=== PATIENT | female | born 1965 | race Caucasian/White ===

== ENCOUNTER 2016-07-19 16:21 | Outpatient (CLI) | payer MEDICAID | END 2016-07-19 16:22 | disposition home or self-care (01) | DX: M47.816 Spondylosis without myelopathy or radiculopathy, lumbar region (principal); M43.16 Spondylolisthesis, lumbar region; M79.662 Pain in left lower leg ==

== ENCOUNTER 2018-01-10 23:00 | Emergency (ER) | payer MEDICAID ==
--- NOTE | 2018-01-11 01:35 | ED Physician Documentation ---
History of Present Illness - Stated complaint Stated Complaint: BODY PAIN - Chief complaint Chief Complaint: General - History obtained from History obtained from: Patient, Family - History of Present Illness Timing: Yesterday Pain level now: 8 Improved by: rest Worsened by: movement - Additonal information Additional information: c/o generalized body pain, worse in extremities (BUE, BLE). she feels this may be related to recent strenuous activity, specifically packing in anticipation of moving out of her current residence. she feels that this pain is similar to pains associated with her fibromyalgia. 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 : None, Kidney stones HEENT: Macular degeneration Psych: Depression, Anxiety, Panic attacks, Post traumatic stress disorder, Claustrophobia Musculoskeletal: Fibromyalgia, Chronic back pain Derm: None - Past Surgical History Past Surgical History: Yes General: EGD /TARGET NETWORK ANALYST: section, Hysterectomy HEENT: Tonsil/Adenoidectomy - Present Medications Home Medications: Ambulatory Orders Medication Instructions Recorded Confirmed Levothyroxine [Synthroid] 100 mcg PO QDAC 03/09/13 07/01/16 Sertraline [Zoloft] 200 mg PO DAILY 03/09/13 07/01/16 Hydroxyzine HCl 50 mg PO QID 04/07/15 07/01/16 Albuterol Sulfate [Proventil Hfa 1 - 2 puffs IH Q4H PRN #1 07/18/15 07/01/16 Inhaler] hfa.aer.ad Methocarbamol 1,000 mg PO Q8HR 07/01/16 07/01/16 Ondansetron Odt [Zofran] 4 mg TL Q6H PRN #10 tablet 07/01/16 07/01/16 Promethazine [Phenergan] 25 - 50 mg PO Q6H PRN #15 tab 07/01/16 Zolpidem [Ambien] 10 mg PO DAILY PM 07/01/16 07/01/16 oxyCODONE/ACET 5/325 [Percocet 5 1 - 2 each PO Q6H PRN #14 tablet 01/11/18 mg/325 mg] - Allergies Allergies/Adverse Reactions: Allergies Allergy/AdvReac Type Severity Reaction Status Date / Time pregabalin [From Lyrica] Allergy Intermediate Respiratory Verified 07/01/16 17: 23 amitriptyline Allergy Unknown Verified 07/01/16 17:23 butalbital [From Fioricet] Allergy Unknown Verified 07/01/16 17:23 caffeine [From Fioricet] Allergy Unknown Verified 07/01/16 17:23 droperidol [From Inapsine] Allergy Anxiety Verified 07/01/16 17:23 gabapentin Allergy Unknown Verified 07/01/16 17:23 metoclopramide HCl * Allergy Anxiety Verified 07/01/16 17:23 [From Reglan] prochlorperazine edisylate * Allergy Anxiety Verified 07/01/16 17:23 [From Compazine] prochlorperazine maleate * Allergy Anxiety Verified 07/01/16 17:23 [From Compazine] sulfamethoxazole Allergy Hives Verified 07/01/16 17:23 [From Bactrim] sumatriptan [From Imitrex] Allergy Unknown Verified 07/01/16 17:23 sumatriptan succinate * Allergy Unknown Verified 07/01/16 17:23 [From Imitrex] topiramate [From Topamax] Allergy Hives Verified 07/01/16 17:23 tramadol HCl * [From Ultram] Allergy Hives Verified 07/01/16 17:23 trimethoprim [From Bactrim] Allergy Hives Verified 07/01/16 17:23 rizatriptan benzoate * AdvReac Intermediate vomiting Verified 07/01/16 17:23 [From Maxalt] nerve pain med Allergy Hives Uncoded 07/01/16 02:40 - Social History Does the pt smoke?: Yes Smoking Status: Current every day smoker Does the pt drink ETOH?: No Does the pt have substance abuse?: Yes - Immunizations Immunizations are current?: Yes - POLST Patient has POLST: No Results - Vitals Vitals: Vital Signs - 24 hr 01/11/18 02:21 Heart Rate 78 Respiratory 16 Rate Blood Pressure 134/93 H O2 Saturation 98 Oxygen O2 Source Room air PD MEDICAL DECISION MAKING - ED course Complexity details: reviewed old records, considered differential, d/w patient, d/w family ED course: HPI, ROS, and physical exam do not suggest an emergent process necessitating or indicating emergent testing. given percocet and rx for same. she apparently told triaging RN that she would need narcotic medication for this pain and that long distance precludes f/u with her PMD. however, she tells me she has f/u with PMD next week. she lists an extensive number of medication allergies. I offered percocet and she expressed satisfaction with this medication; she did not bargain or argue (or inquire) regarding amount prescribed nor request other medications except for toradol. she says she cannot take NSAIDs due to h/o PUD, although when I explain that toradol is an NSAID, she still asks for a dose, as she has had favorable results with this in the past. based on the description of the severity of her PUD, I explained that I would prefer she use the percocet and avoid toradol at this time, and she seemed satisfied with this. - Sepsis Event Vital Signs: Vital Signs - 24 hr 01/11/18 02:21 Heart Rate 78 Respiratory 16 Rate Blood Pressure 134/93 H O2 Saturation 98 Oxygen O2 Source Room air Departure - Departure Disposition: 01 Home, Self Care Clinical Impression: Generalized aches and pains Condition: Good Instructions: ED Acute Pain [facility] Prescriptions: oxyCODONE/ACET 5/325 [Percocet 5 mg/325 mg] 1 - 2 each PO Q6H PRN #14 tablet PRN Reason: Pain Discharge Date/Time: 01/11/18 02:24
[2018-01-11] MEDS ORDERED: oxyCOD/ACETAMIN 5 MG/325 MG TABLET PO STA (02:15)
[2018-01-11 02:24] VITALS: BP 134/93
== END 2018-01-11 02:24 | disposition home or self-care (01) ==
LOC: ED 23:00
DX: M79.1 Myalgia (principal); E03.9 Hypothyroidism, unspecified; F17.200 Nicotine dependence, unspecified, uncomplicated
CPT/HCPCS: 99281; 99283; A9270

== ENCOUNTER 2018-04-15 18:21 | Emergency (ER) | payer MEDICAID ==
--- NOTE | 2018-04-15 19:21 | ED Physician Documentation ---
PD HPI BACK PAIN - Stated complaint Stated Complaint: BACK/BILAT LEG P/ LT FT PX/ JORGE - Chief complaint Chief Complaint: General - History obtained from History obtained from: Patient - History of Present Illness Timing - onset: How many months ago (has had chronic back pain and migraines. Has planned surgery for fusion of lumbar back for the pain and radiculitis about a month from now. Seeing Pain Clinic initial visit on . Has had increased pain over baseline the past 2 weeks. No new injury. Also with migraine the past few days, feeling similar to prior onces.) Timing - duration: Weeks Timing - details: Gradual onset, Still present, Waxing and waning Location: Lower, Right, Left Quality: Pain, Spasm Associated symptoms: Numbness (left lateral lower leg, chronic). No: Fever, Weakness, Incontinent of urine Worsened by: Movement Similar symptoms before: Diagnosis (lumbar disc disease with radiculitis. Also migraines.) Recently seen: Not recently seen (last ER visit was December 2017, and then prior to that was 2017, per [facility] record.) Review of Systems Constitutional: denies: Fever, Chills, Myalgias Nose: denies: Rhinorrhea / runny nose, Congestion Throat: denies: Sore throat Respiratory: denies: Cough GI: reports: Nausea, Diarrhea. denies: Abdominal Swelling, Vomiting Skin: denies: Rash, Lesions Musculoskeletal: reports: Back pain. denies: Neck pain Neurologic: reports: Numbness (chronic left lateral lower leg), Head injury. 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 : None, Kidney stones HEENT: Macular degeneration Psych: Depression, Anxiety, Panic attacks, Post traumatic stress disorder, Claustrophobia Musculoskeletal: Fibromyalgia, Chronic back pain Derm: None - Past Surgical History Past Surgical History: Yes General: EGD /PROMOTIONAL REPRESENTATIVE: section, Hysterectomy HEENT: Tonsil/Adenoidectomy - Present Medications Home Medications: Ambulatory Orders Medication Instructions Recorded Confirmed Levothyroxine [Synthroid] 100 mcg PO QDAC 03/09/13 07/01/16 Sertraline [Zoloft] 200 mg PO DAILY 03/09/13 07/01/16 Ondansetron Odt [Zofran] 4 mg TL Q6H PRN #10 tablet 07/01/16 07/01/16 Zolpidem [Ambien] 10 mg PO DAILY PM 07/01/16 07/01/16 Cyclobenzaprine [Flexeril] 10 mg PO TID PRN 04/15/18 04/15/18 Ondansetron HCl [Zofran] 4 mg PO Q6H PRN #20 tablet 04/15/18 Oxycodone HCl/Acetaminophen 1 each PO Q6H PRN #20 tablet 04/15/18 [Percocet 5-325 mg Tablet] - Allergies Allergies/Adverse Reactions: Allergies Allergy/AdvReac Type Severity Reaction Status Date / Time pregabalin [From Lyrica] Allergy Intermediate Respiratory Verified 04/15/18 18:29 amitriptyline Allergy Unknown Verified 04/15/18 18:29 butalbital [From Fioricet] Allergy Unknown Verified 04/15/18 18:29 caffeine [From Fioricet] Allergy Unknown Verified 04/15/18 18:29 droperidol [From Inapsine] Allergy Anxiety Verified 04/15/18 18:29 gabapentin Allergy Unknown Verified 04/15/18 18:29 metoclopramide HCl * Allergy Anxiety Verified 04/15/18 18:29 [From Reglan] prochlorperazine edisylate * Allergy Anxiety Verified 04/15/18 18:29 [From Compazine] prochlorperazine maleate * Allergy Anxiety Verified 04/15/18 18:29 [From Compazine] sulfamethoxazole Allergy Hives Verified 04/15/18 18:29 [From Bactrim] sumatriptan [From Imitrex] Allergy Unknown Verified 04/15/18 18:29 sumatriptan succinate * Allergy Unknown Verified 04/15/18 18:29 [From Imitrex] topiramate [From Topamax] Allergy Hives Verified 04/15/18 18:29 tramadol HCl * [From Ultram] Allergy Hives Verified 04/15/18 18:29 trimethoprim [From Bactrim] Allergy Hives Verified 04/15/18 18:29 rizatriptan benzoate * AdvReac Intermediate vomiting Verified 04/15/18 18:29 [From Maxalt] nerve pain med Allergy Hives Uncoded 04/15/18 18:29 - Social History Does the pt smoke?: Yes Smoking Status: Current every day smoker Does the pt drink ETOH?: No Does the pt have substance abuse?: Yes - Immunizations Immunizations are current?: Yes - POLST Patient has POLST: No PD ED PE NORMAL - Vitals Vital signs reviewed: Yes - General General: Alert and oriented X 3, No acute distress, Well developed/nourished - HEENT HEENT: PERRL (light sensitive), Ears normal, Pharynx benign - Neck Neck: Supple, no meningeal sign, No adenopathy - Cardiac Cardiac: RRR, No murmur - Respiratory Respiratory: Clear bilaterally - Abdomen Abdomen: Soft, Non tender - Back Back: No CVA TTP - Derm Derm: Normal color, Warm and dry - Extremities Extremities: No tenderness to palpate, Normal ROM s pain, No edema, No calf tenderness / cord - Neuro Neuro: Alert and oriented X 3, No motor deficit, Normal speech Eye Opening: Spontaneous Motor: Obeys Commands Verbal: Oriented GCS Score: 15 Results - Vitals Vitals: Vital Signs - 24 hr 04/15/18 18:24 Temperature 36.3 C L Heart Rate 114 H Respiratory 18 Rate Blood Pressure 140/96 H O2 Saturation 98 Oxygen O2 Source Room air PD MEDICAL DECISION MAKING - ED course Complexity details: reviewed old records (had an ER visit December 2017, and then prior to that was 2016. So currently very infrequent visits. I talked with her about that and I felt that reasonable to treat infrequently for exac pains, but we would watch for increased frequency. She is seeing new pain clinic later this month and having back surgery about a month from now. ), re-evaluated patient (improved with IM meds for migraine and pain. ), considered differential, d/w patient Departure - Departure Disposition: 01 Home, Self Care Clinical Impression: Migraine headache Qualifiers: Migraine type: without aura Status migrainosus presence: with status migrainosus Intractability: not intractable Qualified Code(s): G43.001 - Migraine without aura, not intractable, with status migrainosus Low back pain Qualifiers: Chronicity: chronic Back pain laterality: unspecified Sciatica presence: with sciatica Sciatica laterality: sciatica of left side Qualified Code(s): M54.42 - Lumbago with sciatica, left side Condition: Stable Record reviewed to determine appropriate education?: Yes Follow-Up: Erika Parker PA-C [Primary Care Provider] - Prescriptions: Ondansetron HCl [Zofran] 4 mg PO Q6H PRN #20 tablet PRN Reason: Nausea / Vomiting Oxycodone HCl/Acetaminophen [Percocet 5-325 mg Tablet] 1 each PO Q6H PRN #20 tablet PRN Reason: Pain Comments: See the pain clinic on the as planned. Continue usual medications. Zofran if needed for nausea. Percocet if needed for pain. Discharge Date/Time: 04/15/18 21:44
[2018-04-15] MEDS ORDERED: KETOROLAC 15 MG/ML VIAL IM STA (19:56)
[2018-04-15] MEDS ORDERED: HYDROmorphone 1 MG/ML CARPUJECT IM STA (19:56)
[2018-04-15] MEDS ORDERED: ONDANSETRON ODT 4 MG TABLET TL STA (19:57)
[2018-04-15] MEDS ORDERED: oxyCODONE/ACET 5/325 Prepack 4 PO STA (21:18)
[2018-04-15 21:30] VITALS: BP 128/91
== END 2018-04-15 21:44 | disposition home or self-care (01) ==
LOC: ED 18:21
DX: G43.001 Migraine without aura, not intractable, with status migrainosus (principal); M54.42 Lumbago with sciatica, left side; F17.200 Nicotine dependence, unspecified, uncomplicated
CPT/HCPCS: 96372; 99283; J1170; Q0162

== ENCOUNTER 2018-06-10 08:10 | Emergency (ER) | payer MEDICAID ==
[2018-06-10 08:20] VITALS: BP 160/91
[2018-06-10] MEDS ORDERED: SODIUM CHLORIDE 0.9% 1,000 ML IV ONE (08:38)
[2018-06-10] MEDS ORDERED: DEXAMETHASONE 10 MG/ML VIAL IVP STA (08:38)
[2018-06-10] MEDS ORDERED: ONDANSETRON 4 MG/2 ML VIAL IVP STA (08:38)
[2018-06-10] MEDS ORDERED: HYDROmorphone 1 MG/ML CARPUJECT IVP STA ×2 (08:38→09:25)
--- NOTE | 2018-06-10 08:45 | ED Physician Documentation ---
PD HPI HEADACHE - Stated complaint Stated Complaint: BACK PX/JORGE - Chief complaint Chief Complaint: Back Pain - History obtained from History obtained from: Patient - History of Present Illness Timing - onset: How many days ago (4) Timing - onset during: Rest Timing - duration: Days Timing - details: Gradual onset, Still present Location: Global Quality: Throbbing Associated symptoms: Stiff neck, Nausea. No: Fever, Vomiting, Weakness, Numbness, Syncope, Seizure, Eye pain, Vision changes Improved by: Rest, Dark room, Quiet, Meds Worsened by: Light, Noise, Moving Contributing factors: No: Anticoagulated Similar symptoms before: Diagnosis (migraine and tension headache) Recently seen: Emergency Dept - Additional information Additional information: 52-year-old female with a long history of migraine headache and chronic back pain is off of pain management now and she is developed a headache over the past 4 days that is consistent with what she has had previously with her migraines. She has had tension headaches as well and she has not usually responded to treatment with Compazine and Benadryl. She usually requires narcotic rescue. She is getting ready to have a back surgery on her lumbar area and for pain management right now she is using Tylenol 3 occasionally. She is planning on having a fusion done on the of this month. Review of Systems Constitutional: reports: Fatigue. denies: Fever, Chills Eyes: reports: Photophobia. denies: Decreased vision Ears: denies: Ear pain Nose: reports: Sinus pressure / pain. denies: Rhinorrhea / runny nose, Congestion Throat: denies: Sore throat Cardiac: denies: Chest pain / pressure, Palpitations Respiratory: denies: Dyspnea, Cough GI: reports: Nausea. 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 : None, Kidney stones HEENT: Macular degeneration Psych: Depression, Anxiety, Panic attacks, Post traumatic stress disorder, Claustrophobia Musculoskeletal: Fibromyalgia, Chronic back pain Derm: None - Past Surgical History Past Surgical History: Yes General: EGD /SKIP TRACER: section, Hysterectomy HEENT: Tonsil/Adenoidectomy - Present Medications Home Medications: Ambulatory Orders Medication Instructions Recorded Confirmed Levothyroxine [Synthroid] 100 mcg PO QDAC 03/09/13 07/01/16 Sertraline [Zoloft] 200 mg PO DAILY 03/09/13 07/01/16 Ondansetron Odt [Zofran] 4 mg TL Q6H PRN #10 tablet 07/01/16 07/01/16 Zolpidem [Ambien] 10 mg PO DAILY PM 07/01/16 07/01/16 Cyclobenzaprine [Flexeril] 10 mg PO TID PRN 04/15/18 04/15/18 Ondansetron HCl [Zofran] 4 mg PO Q6H PRN #20 tablet 04/15/18 Oxycodone HCl/Acetaminophen 1 each PO Q6H PRN #20 tablet 04/15/18 [Percocet 5-325 mg Tablet] Oxycodone HCl/Acetaminophen 1 - 2 each PO Q6H PRN #14 tablet 06/10/18 [Percocet 5-325 mg Tablet] - Allergies Allergies/Adverse Reactions: Allergies Allergy/AdvReac Type Severity Reaction Status Date / Time pregabalin [From Lyrica] Allergy Intermediate Respiratory Verified 06/10/18 08:20 amitriptyline Allergy Unknown Verified 06/10/18 08:20 butalbital [From Fioricet] Allergy Unknown Verified 06/10/18 08:20 caffeine [From Fioricet] Allergy Unknown Verified 06/10/18 08:20 droperidol [From Inapsine] Allergy Anxiety Verified 06/10/18 08:20 gabapentin Allergy Unknown Verified 06/10/18 08:20 metoclopramide HCl * Allergy Anxiety Verified 06/10/18 08:20 [From Reglan] prochlorperazine edisylate * Allergy Anxiety Verified 06/10/18 08:20 [From Compazine] prochlorperazine maleate * Allergy Anxiety Verified 06/10/18 08:20 [From Compazine] sulfamethoxazole Allergy Hives Verified 06/10/18 08:20 [From Bactrim] sumatriptan [From Imitrex] Allergy Unknown Verified 06/10/18 08:20 sumatriptan succinate * Allergy Unknown Verified 06/10/18 08:20 [From Imitrex] topiramate [From Topamax] Allergy Hives Verified 06/10/18 08:20 tramadol HCl * [From Ultram] Allergy Hives Verified 06/10/18 08:20 trimethoprim [From Bactrim] Allergy Hives Verified 06/10/18 08:20 rizatriptan benzoate * AdvReac Intermediate vomiting Verified 06/10/18 08:20 [From Maxalt] nerve pain med Allergy Hives Uncoded 06/10/18 08:20 - Social History Does the pt smoke?: Yes Smoking Status: Current every day smoker Does the pt drink ETOH?: No Does the pt have substance abuse?: Yes - Immunizations Immunizations are current?: Yes - POLST Patient has POLST: No PD ED PE NORMAL - Vitals Vital signs reviewed: Yes (tachy and hypertensive ) - General General: Alert and oriented X 3, Well developed/nourished, Other (skip tracer tone flat affect and photophobia are present as facial experssions of pain) - HEENT HEENT: Atraumatic, PERRL, EOMI, Ears normal, Pharynx benign, Other (dry mucous membranes ) - Neck Neck: Supple, no meningeal sign, No bony TTP - Cardiac Cardiac: RRR, No murmur - Respiratory Respiratory: No respiratory distress, Clear bilaterally - Abdomen Abdomen: Soft, Non tender - Back Back: No CVA TTP, No spinal TTP - Derm Derm: Normal color, Warm and dry, No rash - Extremities Extremities: No deformity, No edema - Neuro Neuro: Alert and oriented X 3, chief technologist 2-12 intact, No motor deficit, No sensory deficit, Normal speech Eye Opening: Spontaneous Motor: Obeys Commands Verbal: Oriented GCS Score: 15 - Psych Psych: Normal mood Results - Vitals Vitals: Vital Signs - 24 hr 06/10/18 08:17 Temperature 36.0 C L Heart Rate 107 H Respiratory 16 Rate Blood Pressure 160/91 H O2 Saturation 99 Oxygen O2 Source Room air PD MEDICAL DECISION MAKING - ED course Complexity details: reviewed old records, reviewed results, re-evaluated patient, considered differential, d/w patient ED course: 52 y/o female with a history of migraine and tension headache has persistent headache and requires narcotic rescue. She is given saline and decadron as well and a second dose of dilaudid. Departure - Departure Disposition: 01 Home, Self Care Clinical Impression: Tension headache Condition: Stable Instructions: ED Headache Tension Follow-Up: Erika Parker PA-C [Primary Care Provider] - Prescriptions: Oxycodone HCl/Acetaminophen [Percocet 5-325 mg Tablet] 1 - 2 each PO Q6H PRN #14 tablet PRN Reason: pain Discharge Date/Time: 06/10/18 09:54
== END 2018-06-10 09:54 | disposition home or self-care (01) ==
LOC: ED 08:10
DX: G44.209 Tension-type headache, unspecified, not intractable (principal); E03.9 Hypothyroidism, unspecified; F17.200 Nicotine dependence, unspecified, uncomplicated
CPT/HCPCS: 96374; 96376; 99283; J1170

== ENCOUNTER 2018-07-15 14:35 | Emergency (ER) | payer MEDICAID ==
[2018-07-15] MEDS ORDERED: KETOROLAC 60 MG/2 ML VIAL IM STA (14:55)
[2018-07-15] MEDS ORDERED: HYDROmorphone 1 MG/ML CARPUJECT IM STA (14:55)
--- NOTE | 2018-07-15 14:58 | ED Physician Documentation ---
History of Present Illness - Stated complaint Stated Complaint: JORGE/BODY PX - Chief complaint Chief Complaint: General - History obtained from History obtained from: Patient - History of Present Illness Timing: Other (This is a 52-year-old woman with history of fibromyalgia and low back pain who was scheduled for late last month but was put off that she has been worked up for von Willebrand's disease. She presents with all over body pain and headache that started over the last few days and she is out of the pain medications that her surgeon prescribed her. She is a long history of concern for narcotic abuse from the emergency department and frequent emergency department use but over the last few years has used the emergency department much less than she had prior to that.) Review of Systems Constitutional: denies: Fever Ears: reports: Ear pain (right). denies: Loss of hearing Nose: reports: Rhinorrhea / runny nose. 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: None : None, Kidney stones HEENT: Macular degeneration Psych: Depression, Anxiety, Panic attacks, Post traumatic stress disorder, Claustrophobia Musculoskeletal: Fibromyalgia, Chronic back pain Derm: None - Past Surgical History Past Surgical History: Yes General: EGD /BRICK PICKER: section, Hysterectomy HEENT: Tonsil/Adenoidectomy - Present Medications Home Medications: Ambulatory Orders Medication Instructions Recorded Confirmed Levothyroxine [Synthroid] 100 mcg PO QDAC 03/09/13 07/01/16 Sertraline [Zoloft] 200 mg PO DAILY 03/09/13 07/01/16 Ondansetron Odt [Zofran] 4 mg TL Q6H PRN #10 tablet 07/01/16 07/01/16 Zolpidem [Ambien] 10 mg PO DAILY PM 07/01/16 07/01/16 Cyclobenzaprine [Flexeril] 10 mg PO TID PRN 04/15/18 04/15/18 Ondansetron HCl [Zofran] 4 mg PO Q6H PRN #20 tablet 04/15/18 Oxycodone HCl/Acetaminophen 1 each PO Q6H PRN #20 tablet 04/15/18 [Percocet 5-325 mg Tablet] Oxycodone HCl/Acetaminophen 1 - 2 each PO Q6H PRN #14 tablet 06/10/18 [Percocet 5-325 mg Tablet] Neomycin/Polymyx/Hc Otic Drops 4 drops OT TID #1 bottle 07/15/18 [Cortisporin Ear Susp] Oxycodone HCl/Acetaminophen 1 - 2 each PO Q6H PRN #10 tablet 07/15/18 [Percocet 5-325 mg Tablet] RX: Albuterol Sulf [Ventolin Hfa 1 - 2 puffs INH Q4HR PRN #1 inhaler 07/15/18 Inhaler] - Allergies Allergies/Adverse Reactions: Allergies Allergy/AdvReac Type Severity Reaction Status Date / Time pregabalin [From Lyrica] Allergy Intermediate Respiratory Verified 07/15/18 14:42 amitriptyline Allergy Unknown Verified 07/15/18 14:42 butalbital [From Fioricet] Allergy Unknown Verified 07/15/18 14:42 caffeine [From Fioricet] Allergy Unknown Verified 07/15/18 14:42 droperidol [From Inapsine] Allergy Anxiety Verified 07/15/18 14:42 gabapentin Allergy Unknown Verified 07/15/18 14:42 metoclopramide HCl * Allergy Anxiety Verified 07/15/18 14:42 [From Reglan] prochlorperazine edisylate * Allergy Anxiety Verified 07/15/18 14:42 [From Compazine] prochlorperazine maleate * Allergy Anxiety Verified 07/15/18 14:42 [From Compazine] sulfamethoxazole Allergy Hives Verified 07/15/18 14:42 [From Bactrim] sumatriptan [From Imitrex] Allergy Unknown Verified 07/15/18 14:42 sumatriptan succinate * Allergy Unknown Verified 07/15/18 14:42 [From Imitrex] topiramate [From Topamax] Allergy Hives Verified 07/15/18 14:42 tramadol HCl * [From Ultram] Allergy Hives Verified 07/15/18 14:42 trimethoprim [From Bactrim] Allergy Hives Verified 07/15/18 14:42 rizatriptan benzoate * AdvReac Intermediate vomiting Verified 07/15/18 14:42 [From Maxalt] aspirin AdvReac Unknown Verified 07/15/18 14:42 NSAIDS (Non-Steroidal AdvReac Unknown Verified 07/15/18 14:42 Anti-Inflamma nerve pain med Allergy Hives Uncoded 07/15/18 14:42 - Social History Does the pt smoke?: Yes Smoking Status: Current every day smoker Does the pt drink ETOH?: No Does the pt have substance abuse?: Yes - Immunizations Immunizations are current?: Yes - POLST Patient has POLST: No PD ED PE NORMAL - Vitals Vital signs reviewed: Yes - General General: Alert and oriented X 3, No acute distress - HEENT HEENT: PERRL, EOMI, Other (Right external otitis, TMs normal) - Neck Neck: Supple, no meningeal sign, No bony TTP - Cardiac Cardiac: RRR, No murmur - Respiratory Respiratory: No respiratory distress, Clear bilaterally - Abdomen Abdomen: Normal bowel sounds, Soft, Non tender - Back Back: No CVA TTP, No spinal TTP - Derm Derm: Normal color, Warm and dry - Extremities Extremities: No edema, No calf tenderness / cord, Other (She has diffuse tenderness consistent with a fibromyalgia flare especially in spots in the upper back and anterior thighs.) - Neuro Neuro: Alert and oriented X 3, Normal speech Results - Vitals Vitals: Vital Signs - 24 hr 07/15/18 07/15/18 14:38 15:20 Temperature 36.7 C Heart Rate 95 90 Respiratory 18 18 Rate Blood Pressure 138/90 H 130/88 H O2 Saturation 100 100 Oxygen O2 Source Room air PD MEDICAL DECISION MAKING - ED course ED course: 52-year-old woman with chronic pain who presents with body wide pain but basically an unremarkable examination and vitals. There is no evidence of an acute medical emergency. In the past we had some concerns about drug-seeking behavior with her. 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 Departure - Departure Disposition: 01 Home, Self Care Clinical Impression: External otitis, Chronic back pain, Myalgia Condition: Good Record reviewed to determine appropriate education?: Yes Instructions: ED Chronic Pain Management, ED Acute Pain [facility] Prescriptions: RX: Albuterol Sulf [Ventolin Hfa Inhaler] 1 - 2 puffs INH Q4HR PRN #1 inhaler PRN Reason: Shortness Of Air/Wheezing Neomycin/Polymyx/Hc Otic Drops [Cortisporin Ear Susp] 4 drops OT TID #1 bottle Oxycodone HCl/Acetaminophen [Percocet 5-325 mg Tablet] 1 - 2 each PO Q6H PRN #10 tablet PRN Reason: pain Comments: The policy of this emergency department is to not give more than 3 prescriptions for narcotics or other controlled substances in any 1 year. You have already surpassed this benchmark and we cannot prescribe narcotics for you. I encourage you to follow up with your primary care physician or to establish care with a primary care physician for ongoing pain management. You are always welcome to seek emergency care here for this or new issues but there will likely be limitations in the prescription of narcotic pain medication. Your blood pressure was elevated today on check into the emergency department. This does not mean that you have hypertension, it is a common phenomenon to come to the emergency department and have elevated blood pressure. I recommend that you see your primary care physician within the week to have it rechecked when you are feeling better. Discharge Date/Time: 07/15/18 15:20
[2018-07-15 15:22] VITALS: BP 130/88
== END 2018-07-15 15:20 | disposition home or self-care (01) ==
LOC: ED 14:35
DX: H60.91 Unspecified otitis externa, right ear (principal); M54.6 Pain in thoracic spine; G89.29 Other chronic pain; M79.7 Fibromyalgia; R03.0 Elevated blood-pressure reading, without diagnosis of hypertension; F17.200 Nicotine dependence, unspecified, uncomplicated
CPT/HCPCS: 96372; 99283; J1170

== ENCOUNTER 2018-08-19 20:42 | Emergency (ER) | payer MEDICAID ==
[2018-08-19 22:00] LABS: BASOPHILS % (AUTO) 0.2 %; EOSINOPHILS # (AUTO) 0.2 10^3/uL (0.0-0.7); EOSINOPHILS % (AUTO) 1.3 %; HGB - HEMOGLOBIN 8.1 g/dL (12.0-16.0); LYMPHOCYTES # (AUTO) 2.7 10^3/uL (1.5-3.5); LYMPHOCYTES % (AUTO) 19.7 %; MEAN CORPUSCULAR HEMOGLOBIN 26.9 pg (27.0-31.0); MEAN CORPUSCULAR HGB CONC 33.2 g/dL (32.0-36.0); MEAN CORPUSCULAR VOLUME 81.2 fL (81.0-99.0); MEAN PLATELET VOLUME 7.1 fL (7.9-10.8); MONOCYTES % (AUTO) 7.3 %; NEUTROPHILS # (AUTO) 9.7 10^3/uL (1.5-6.6); NEUTROPHILS % (AUTO) 71.5 %; PLT - PLATELET COUNT 404 10^3/uL (130-450); RED BLOOD COUNT 3.01 10^6/uL (4.20-5.40); RED CELL DISTRIBUTION WIDTH 15.5 % (12.0-15.0); WHITE BLOOD COUNT 13.5 x10^3/uL (4.8-10.8)
[2018-08-19 22:12] LABS: ALBUMIN 2.9 g/dL (3.2-5.5); ALBUMIN/GLOBULIN RATIO 0.7 (1.0-2.2); BILIRUBIN,TOTAL 0.4 mg/dL (0.2-1.0); CALCIUM 8.5 mg/dL (8.5-10.3); CREATININE 0.7 mg/dL (0.4-1.0); TOTAL PROTEIN 6.9 g/dL (6.7-8.2)
--- NOTE | 2018-08-19 22:23 | ED Physician Documentation ---
History of Present Illness - Stated complaint Stated Complaint: BILAT LEG SWELLING/POST OP 6 - Chief complaint Chief Complaint: Trauma Ext - Additonal information Additional information: 52-year-old female presents the emergency department with bilateral leg swelling over the past several days. The patient is status post lumbar fusion for degenerative disc disease. The patient denies any swelling or redness of the wound or drainage from the wound site. The patient denies fevers or chills. The patient denies any new motor weakness, saddle anesthesia or urinary retention. The patient denies chest pain or shortness of breath. The patient states that she has been ambulatory but has noticed increasing leg swelling, But no skin changes or skin Redness. Symptoms are described as mild. Review of Systems Constitutional: denies: Fever, Fatigue Eyes: denies: Discharge Ears: denies: Ear pain Nose: denies: Congestion Throat: denies: Sore throat Cardiac: reports: Pedal edema. 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 : None, Kidney stones HEENT: Macular degeneration Psych: Depression, Anxiety, Panic attacks, Post traumatic stress disorder, Claustrophobia Musculoskeletal: Fibromyalgia, Chronic back pain Derm: None - Past Surgical History Past Surgical History: Yes General: EGD Ortho: Other /TAKE UP SUPERVISOR: section, Hysterectomy HEENT: Tonsil/Adenoidectomy - Present Medications Home Medications: Ambulatory Orders Medication Instructions Recorded Confirmed Levothyroxine [Synthroid] 100 mcg PO QDAC 03/09/13 07/01/16 Sertraline [Zoloft] 200 mg PO DAILY 03/09/13 07/01/16 Ondansetron Odt [Zofran] 4 mg TL Q6H PRN #10 tablet 07/01/16 07/01/16 Zolpidem [Ambien] 10 mg PO DAILY PM 07/01/16 07/01/16 Cyclobenzaprine [Flexeril] 10 mg PO TID PRN 04/15/18 04/15/18 Ondansetron HCl [Zofran] 4 mg PO Q6H PRN #20 tablet 04/15/18 Oxycodone HCl/Acetaminophen 1 each PO Q6H PRN #20 tablet 04/15/18 [Percocet 5-325 mg Tablet] Oxycodone HCl/Acetaminophen 1 - 2 each PO Q6H PRN #14 tablet 06/10/18 [Percocet 5-325 mg Tablet] Albuterol Sulf [Ventolin Hfa 1 - 2 puffs INH Q4HR PRN #1 inhaler 07/15/18 Inhaler] Neomycin/Polymyx/Hc Otic Drops 4 drops OT TID #1 bottle 07/15/18 [Cortisporin Ear Susp] Oxycodone HCl/Acetaminophen 1 - 2 each PO Q6H PRN #10 tablet 07/15/18 [Percocet 5-325 mg Tablet] Furosemide [Lasix] 20 mg PO DAILY #4 tablet 08/19/18 - Allergies Allergies/Adverse Reactions: Allergies Allergy/AdvReac Type Severity Reaction Status Date / Time pregabalin [From Lyrica] Allergy Intermediate Respiratory Verified 08/19/18 20:50 amitriptyline Allergy Unknown Verified 08/19/18 20:50 droperidol [From Inapsine] Allergy Anxiety Verified 08/19/18 20:50 gabapentin Allergy Unknown Verified 08/19/18 20:50 metoclopramide HCl * Allergy Anxiety Verified 08/19/18 20:50 [From Reglan] prochlorperazine edisylate * Allergy Anxiety Verified 08/19/18 20:50 [From Compazine] prochlorperazine maleate * Allergy Anxiety Verified 08/19/18 20:50 [From Compazine] sulfamethoxazole Allergy Hives Verified 08/19/18 20:50 [From Bactrim] sumatriptan [From Imitrex] Allergy Unknown Verified 08/19/18 20:50 sumatriptan succinate * Allergy Unknown Verified 08/19/18 20:50 [From Imitrex] topiramate [From Topamax] Allergy Hives Verified 08/19/18 20:50 tramadol HCl * [From Ultram] Allergy Hives Verified 08/19/18 20:50 trimethoprim [From Bactrim] Allergy Hives Verified 08/19/18 20:50 rizatriptan benzoate * AdvReac Intermediate vomiting Verified 08/19/18 20:50 [From Maxalt] aspirin AdvReac Unknown Verified 08/19/18 20:50 butalbital [From Fioricet] AdvReac Unknown Verified 08/19/18 20:50 caffeine [From Fioricet] AdvReac Unknown Verified 08/19/18 20:50 NSAIDS (Non-Steroidal AdvReac Unknown Verified 08/19/18 20:50 Anti-Inflamma nerve pain med Allergy Hives Uncoded 08/19/18 20:50 - Social History Does the pt smoke?: Yes Smoking Status: Current every day smoker Does the pt drink ETOH?: No Does the pt have substance abuse?: Yes - Immunizations Immunizations are current?: Yes - POLST Patient has POLST: No PD ED PE NORMAL - General General: Alert and oriented X 3, No acute distress - HEENT HEENT: Atraumatic, PERRL, EOMI, Ears normal - Neck Neck: Supple, no meningeal sign - Cardiac Cardiac: RRR (Tachycardia with regular Rhythm), Strong equal pulses - Respiratory Respiratory: No respiratory distress, Clear bilaterally - Back Back: Other (The patient has a midline incision along the lumbar spine, the terri are intact and the wound is clean and dry and there is no surrounding erythematous changes or signs of an acute infection) - Derm Derm: Normal color - Extremities Extremities: No deformity, No tenderness to palpate, Normal ROM s pain. No: No edema (The patient has 2+ edema bilaterally) - Neuro Neuro: Alert and oriented X 3, Normal speech - Psych Psych: Normal affect Results - Vitals Vitals: Vital Signs - 24 hr 08/19/18 08/19/18 20:47 23:23 Temperature 37.4 C Heart Rate 113 H 97 Respiratory 18 16 Rate Blood Pressure 130/74 109/81 H O2 Saturation 100 99 Oxygen O2 Source Room air - Labs Labs: Laboratory Tests 08/19/18 08/19/18 08/19/18 21:50 21:50 21:50 WBC 13.5 H RBC 3.01 L Hgb 8.1 L Hct 24.4 L MCV 81.2 MCH 26.9 L MCHC 33.2 RDW 15.5 H Plt Count 404 MPV 7.1 L Neut # (Auto) 9.7 H Lymph # (Auto) 2.7 [place] # (Auto) 1.0 Eos # (Auto) 0.2 Baso # (Auto) 0.0 Absolute Nucleated RBC 0.00 Nucleated RBC % 0.0 Sodium 138 Potassium 3.3 L Chloride 99 L Carbon Dioxide 30 Anion Gap 9.0 BUN 5 L Creatinine 0.7 Estimated GFR (MDRD) 87 L Glucose 97 Calcium 8.5 Total Bilirubin 0.4 AST 22 ALT 17 Alkaline Phosphatase 82 Troponin I B-Natriuretic Peptide 71 Total Protein 6.9 Albumin 2.9 L Globulin 4.0 Albumin/Globulin Ratio 0.7 L Lipase 26 08/19/18 21:50 WBC RBC Hgb Hct MCV MCH MCHC RDW Plt Count MPV Neut # (Auto) Lymph # (Auto) [place] # (Auto) Eos # (Auto) Baso # (Auto) Absolute Nucleated RBC Nucleated RBC % Sodium Potassium Chloride Carbon Dioxide Anion Gap BUN Creatinine Estimated GFR (MDRD) Glucose Calcium Total Bilirubin AST ALT Alkaline Phosphatase Troponin I < 0.04 B-Natriuretic Peptide Total Protein Albumin Globulin Albumin/Globulin Ratio Lipase - Rads (name of study) Venous Duplex Radiology: Final report received, See rad report PD MEDICAL DECISION MAKING - ED course ED course: The patient appears to have peripheral edema, there is no findings to suggest acute DVT or congestive heart failure. This most likely is just postoperative edema and the patient appears appropriate for discharge and ongoing outpatient management. The patient will do a short course of Lasix to help diurese this extra fluid. The patient has a history of anemia and reports that a hemoglobin of 8 is roughly in her normal range. I also advised increasing foods that have potassium. The patient understands and agrees. The patient will be following up with primary care this week for recheck. I discussed warning signs and recommended returning for any worsening or any concerns Departure - Departure Disposition: 01 Home, Self Care Clinical Impression: Peripheral edema Anemia Qualifiers: Anemia type: unspecified type Qualified Code(s): D64.9 - Anemia, unspecified Condition: Good Instructions: Anemia, ED Edema Legs Bilateral Follow-Up: Erika Parker PA-C [Primary Care Provider] - Within 1 week Prescriptions: Furosemide [Lasix] 20 mg PO DAILY #4 tablet Comments: Please return to the emergency department for worsening symptoms or any concerns Discharge Date/Time: 08/19/18 23:34
--- NOTE | 2018-08-19 22:45 | Ultrasound Report ---
Reason: b/l leg swelling Procedure Date: 08/19/2018 Accession Number: [id number] / [id number] Procedure: US - Duplex Ext Veins Bilateral CPT Code: FULL RESULT: EXAM: BILATERAL LOWER EXTREMITY VENOUS ULTRASOUND EXAM DATE: 08/19/2018 09:56 PM. CLINICAL HISTORY: Bilateral leg swelling. COMPARISON: None. TECHNIQUE: Real-time sonographic vascular imaging was performed by the geography head through the lower extremities utilizing both color-flow and Doppler spectral analysis. Multiple key account representative static images were saved for review. FINDINGS: Right: Common Femoral Vein (CFV): Normal. CFV-GSV Junction: Normal. Profunda Femoral Vein (PFV): Normal. Femoral Vein (FV) Prox: Normal. Femoral Vein (FV) Mid: Normal. Femoral Vein (FV) Dist: Normal. Popliteal Vein: Normal. Posterior Tibial Veins: Normal. Peroneal Veins: Normal. Left: Common Femoral Vein (CFV): Normal. CFV-GSV Junction: Normal. Profunda Femoral Vein (PFV): Normal. Femoral Vein (FV) Prox: Normal. Femoral Vein (FV) Mid: Normal. Femoral Vein (FV) Dist: Normal. Popliteal Vein: Normal. Posterior Tibial Veins: Normal. Peroneal Veins: Normal. IMPRESSION: No evidence for deep venous thrombosis bilaterally. RADIA
--- NOTE | 2018-08-19 22:57 | XRAY Report ---
Reason: leg swelling Procedure Date: 08/19/2018 Accession Number: [id number] / [id number] Procedure: XR - Chest 2 View X-Ray CPT Code: 81915 FULL RESULT: EXAM: CHEST RADIOGRAPHY EXAM DATE: 08/19/2018 10:44 PM. CLINICAL HISTORY: Leg swelling. COMPARISON: CHEST 2 VIEW PA/LAT 08/16/2016 4:57 PM. TECHNIQUE: 2 views. FINDINGS: Lungs/Pleura: No focal infiltrate or pulmonary vascular congestion. Trace pleural effusions posteriorly. No pneumothorax. Mediastinum: Heart and mediastinal contours are unremarkable. Other: None. IMPRESSION: Trace pleural effusions posteriorly. RADIA
[2018-08-19] MEDS ORDERED: FUROSEMIDE 20 MG/2 ML VIAL IVP STA (23:01)
[2018-08-19] MEDS ORDERED: FUROSEMIDE 20 MG TABLET PO STA (23:16)
[2018-08-19] MEDS ORDERED: POTASSIUM CHLORIDE 20 MEQ TABLET PO STA (23:16)
[2018-08-19 23:25] VITALS: BP 109/81
== END 2018-08-19 23:34 | disposition home or self-care (01) ==
LOC: ED 20:42
DX: R60.0 Localized edema (principal); Z98.1 Arthrodesis status; D64.9 Anemia, unspecified; F17.200 Nicotine dependence, unspecified, uncomplicated
CPT/HCPCS: 36415; 71046; 80053; 83690; 83880; 84484; 85025; 93005; 93970; 96374; 99283; A9270

== ENCOUNTER 2018-10-05 17:45 | Outpatient (CLI) | payer MEDICAID ==
[2018-10-05] MEDS ORDERED: GADOBUTROL 10 MMOL/10 ML VIAL IVP ONE (19:08)
--- NOTE | 2018-10-06 23:15 | MRI Report ---
Reason: SPONDYLOLISTHESIS OF LUMBAR REGION, OSTEOARTHRITIS Procedure Date: 10/05/2018 Accession Number: [id number] / [id number] Procedure: MRI - Lumbar Spine W/WO CPT Code: FULL RESULT: EXAM: MRI LUMBAR SPINE WITHOUT AND WITH CONTRAST EXAM DATE: 10/05/2018 06:40 PM. CLINICAL HISTORY: Severe low back pain, bilateral leg weakness COMPARISONS: MR lumbar spine 07/19/2016. TECHNIQUE: Multiplanar, multisequence T1-weighted and fluid-sensitive sequences of the lumbar spine from T12 to S1 before and after administration of intravenous contrast. Other: None. IV contrast: None. FINDINGS: Neurologic Structures: The conus terminates at L1. The conus medullaris and cauda equina are unremarkable. Alignment: There is 3 mm anterolisthesis of L4 and L5. Bone Marrow: Five [id number] lumbar vertebral bodies are assumed. No gross fractures or bone lesions. No bone marrow replacement or abnormal enhancement. Disk Levels/Facets: T12-L1: Unremarkable. L1-L2: Unremarkable. L2-L3: Unremarkable. L3-L4: Unremarkable. L4-L5: Status post interval L4-L5 posterior fusion and laminectomy. No central canal narrowing. Neural foramen obscured by metal artifact. L5-S1: Mild bilateral facet hypertrophy. No central canal narrowing. Mild bilateral neural foraminal narrowing. Spinal Canal: No enhancing masses within the spinal canal. No epidural abscess. Other: Edema involving the posterior paraspinous musculature at the L2-S1 levels. IMPRESSION: 1. Status post L4-L5 laminectomy and posterior fusion. 2. Mild bilateral L5-S1 neural foraminal narrowing. 3. No focal disk protrusion. No central canal narrowing. 4. Prominent edema of posterior paraspinous musculature extending from L2-S1, which may be within normal limits for postoperative appearance. RADIA
== END 2018-10-05 17:46 | disposition home or self-care (01) ==
LOC: DI 17:45
PROVIDERS: ATTEND Nurse Practitioner Family
DX: M47.9 Spondylosis, unspecified (principal); M48.07 Spinal stenosis, lumbosacral region; Z98.1 Arthrodesis status
CPT/HCPCS: 72158

== ENCOUNTER 2018-10-06 22:19 | Emergency (ER) | payer MEDICAID ==
[2018-10-06] MEDS ORDERED: HYDROmorphone 1 MG/ML CARPUJECT IM STA (23:12)
[2018-10-06] MEDS ORDERED: ONDANSETRON ODT 4 MG TABLET TL STA (23:12)
--- NOTE | 2018-10-06 23:17 | ED Physician Documentation ---
PD HPI BACK PAIN - Stated complaint Stated Complaint: HEADACHE/BACK PAIN - Chief complaint Chief Complaint: Back Pain - History obtained from History obtained from: Patient, Family - History of Present Illness Timing - onset: How many days ago (5) Timing - duration: Days (5) Timing - details: Gradual onset, Still present Location: Lower Quality: Pain, Spasm, Sharp, Similar to prior episodes Associated symptoms: No: Fever, Weakness, Numbness, Incontinent of urine, Unable to urinate, Hematuria, Incontinent of stool Improves with: Rest, Position Worsened by: Movement Similar symptoms before: Diagnosis (lumbar disc disease) Recently seen: Clinic - Additional information Additional information: 52-year-old female who has had a lumbar surgical procedure done on 08/13/2018 has been back into see her surgeon for a follow-up visit at which time she was developing some new symptoms of pain down the left side of her leg and pain in her back. She states that for the first 5 weeks following her surgery she was well and then she began to have some symptoms and a plain film was ordered in August. At her follow-up visit she had new symptoms and an MRI was ordered and done last night. She has not had results as yet. She denies any incontinence or numbness in the perineum she does have specific pain in her mid lumbar spine and pain radiating down the left leg she does have occasional electric shocklike pain down the right leg. Review of Systems Constitutional: denies: Fever, Chills, Myalgias, Fatigue Eyes: denies: Decreased vision, Photophobia Ears: denies: Ear pain Nose: denies: Rhinorrhea / runny nose, Congestion Throat: denies: Sore throat Cardiac: denies: Chest pain / pressure, Palpitations Respiratory: denies: Dyspnea, Cough GI: denies: Abdominal Pain, Nausea, Vomiting, Constipation, Diarrhea : denies: Dysuria, Frequency, Incontinent Skin: denies: Rash Musculoskeletal: reports: Back pain, Extremity pain. denies: Neck pain Neurologic: reports: Headache. 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: section, Hysterectomy HEENT: Tonsil/Adenoidectomy - Present Medications Home Medications: Ambulatory Orders Medication Instructions Recorded Confirmed Levothyroxine [Synthroid] 100 mcg PO QDAC 03/09/13 07/01/16 Sertraline [Zoloft] 200 mg PO DAILY 03/09/13 07/01/16 Ondansetron Odt [Zofran] 4 mg TL Q6H PRN #10 tablet 07/01/16 07/01/16 Zolpidem [Ambien] 10 mg PO DAILY PM 07/01/16 07/01/16 Cyclobenzaprine [Flexeril] 10 mg PO TID PRN 04/15/18 04/15/18 Ondansetron HCl [Zofran] 4 mg PO Q6H PRN #20 tablet 04/15/18 Oxycodone HCl/Acetaminophen 1 each PO Q6H PRN #20 tablet 04/15/18 [Percocet 5-325 mg Tablet] Oxycodone HCl/Acetaminophen 1 - 2 each PO Q6H PRN #14 tablet 06/10/18 [Percocet 5-325 mg Tablet] Albuterol Sulf [Ventolin Hfa 1 - 2 puffs INH Q4HR PRN #1 inhaler 07/15/18 Inhaler] Neomycin/Polymyx/Hc Otic Drops 4 drops OT TID #1 bottle 07/15/18 [Cortisporin Ear Susp] Oxycodone HCl/Acetaminophen 1 - 2 each PO Q6H PRN #10 tablet 07/15/18 [Percocet 5-325 mg Tablet] Furosemide [Lasix] 20 mg PO DAILY #4 tablet 08/19/18 Ondansetron Odt [Zofran] 4 mg TL Q6H PRN #10 tablet 10/07/18 - Allergies Allergies/Adverse Reactions: Allergies Allergy/AdvReac Type Severity Reaction Status Date / Time pregabalin [From Lyrica] Allergy Intermediate Respiratory Verified 08/19/18 20:50 amitriptyline Allergy Unknown Verified 08/19/18 20:50 droperidol [From Inapsine] Allergy Anxiety Verified 08/19/18 20:50 gabapentin Allergy Unknown Verified 08/19/18 20:50 metoclopramide HCl * Allergy Anxiety Verified 08/19/18 20:50 [From Reglan] prochlorperazine edisylate * Allergy Anxiety Verified 08/19/18 20:50 [From Compazine] prochlorperazine maleate * Allergy Anxiety Verified 08/19/18 20:50 [From Compazine] sulfamethoxazole Allergy Hives Verified 08/19/18 20:50 [From Bactrim] sumatriptan [From Imitrex] Allergy Unknown Verified 08/19/18 20:50 sumatriptan succinate * Allergy Unknown Verified 08/19/18 20:50 [From Imitrex] topiramate [From Topamax] Allergy Hives Verified 08/19/18 20:50 tramadol HCl * [From Ultram] Allergy Hives Verified 08/19/18 20:50 trimethoprim [From Bactrim] Allergy Hives Verified 08/19/18 20:50 rizatriptan benzoate * AdvReac Intermediate vomiting Verified 08/19/18 20:50 [From Maxalt] aspirin AdvReac Unknown Verified 08/19/18 20:50 NSAIDS (Non-Steroidal AdvReac Unknown Verified 08/19/18 20:50 Anti-Inflamma nerve pain med Allergy Hives Uncoded 08/19/18 20:50 - Social History Does the pt smoke?: Yes Smoking Status: Current every day smoker Does the pt drink ETOH?: No Does the pt have substance abuse?: Yes - Immunizations Immunizations are current?: Yes - POLST Patient has POLST: No PD ED PE NORMAL - Vitals Vital signs reviewed: Yes (febrile low grade hypertensive mild ) - General General: Alert and oriented X 3, Well developed/nourished - HEENT HEENT: Atraumatic, PERRL, EOMI, Ears normal, Moist mucous membranes - Neck Neck: Supple, no meningeal sign, No bony TTP - Cardiac Cardiac: RRR, No murmur - Respiratory Respiratory: No respiratory distress, Clear bilaterally - Abdomen Abdomen: Soft, Non tender - Back Back: No CVA TTP, Other (There is a well healed surgical scar to the lumbar spine. There is no evidence of inflamation or swelling. There is some midline tenderness to the lower lumbar spine over lower 1/3 of the surgical scar at about the L4 level. ) - Derm Derm: Normal color, Warm and dry, No rash - Extremities Extremities: No deformity, No edema - Neuro Neuro: Alert and oriented X 3, electronic console display operator 2-12 intact, No motor deficit, No sensory deficit, Normal speech Eye Opening: Spontaneous Motor: Obeys Commands Verbal: Oriented GCS Score: 15 - Psych Psych: Normal mood, Normal affect Results - Vitals Vitals: Vital Signs - 24 hr 10/06/18 10/06/18 10/07/18 22:22 23:24 00:15 Temperature 37.7 C H 37.7 C H 36.4 C L Heart Rate 94 94 91 Respiratory 16 16 16 Rate Blood Pressure 134/82 H 134/82 H 123/75 O2 Saturation 99 99 99 Oxygen O2 Source Room air - Rads (name of study) MRI lumbar Radiology: Prelim report reviewed (Impression: 1. Status post L4-L5 laminectomy and posterior fusion. 2 Mild bilateral L5-S1 neural foraminal narrowing. 3 No disc protrusion. No central canal narrowing. 4 Prominent edema of the posterior paraspinous musculature extending from L5-S1, which may be within normal limits for postoperative appearance.), EMP read indepedently, See rad report PD MEDICAL DECISION MAKING - ED course Complexity details: reviewed old records, reviewed results, re-evaluated patient, considered differential, d/w patient, d/w family ED course: 52-year-old female with a recent back surgery has back pain again as well as headache. Her MRI is reviewed. There does not appear to be evidence of disc infection or osteo and she is treated here in the emergency department symptomatically for the pain of her headache and she is administered a dose of dexamethasone. She will have phone follow-up with her surgeon. Departure - Departure Disposition: 01 Home, Self Care Clinical Impression: Tension headache Back pain Qualifiers: Back pain location: low back pain Chronicity: chronic Back pain laterality: midline Sciatica presence: with sciatica Sciatica laterality: sciatica of left side Qualified Code(s): M54.42 - Lumbago with sciatica, left side Condition: Stable Instructions: ED Headache Tension, ED Sciatica Follow-Up: Erika Parker PA-C [Primary Care Provider] - Prescriptions: Ondansetron Odt [Zofran] 4 mg TL Q6H PRN #10 tablet PRN Reason: Nausea / Vomiting
[2018-10-06] MEDS ORDERED: DEXAMETHASONE 10 MG/ML VIAL PO STA (23:59)
[2018-10-06] MEDS ORDERED: CHERRY SYRUP 10 ML UDC PO ONE (23:59)
[2018-10-07] MEDS ORDERED: HYDROmorphone 1 MG/ML CARPUJECT IM STA (00:10)
[2018-10-07 00:16] VITALS: BP 123/75
[2018-10-07] MEDS ORDERED: oxyCODONE/ACET 5/325 Prepack 4 PO STA (00:55)
== END 2018-10-07 01:07 | disposition home or self-care (01) ==
LOC: ED 22:19
DX: G44.209 Tension-type headache, unspecified, not intractable (principal); M54.42 Lumbago with sciatica, left side; E03.9 Hypothyroidism, unspecified; F17.200 Nicotine dependence, unspecified, uncomplicated
CPT/HCPCS: 96372; 99283; A9270; J1170; Q0162

== ENCOUNTER 2018-10-07 13:16 | Emergency (ER) | payer MEDICAID ==
[2018-10-07] MEDS ORDERED: ONDANSETRON 4 MG/2 ML VIAL IVP STA ×2 (14:04→15:17)
[2018-10-07] MEDS ORDERED: SODIUM CHLORIDE 0.9% 1,000 ML IV ONE (14:04)
[2018-10-07] MEDS ORDERED: DIHYDROERGOTAMINE 1 MG/ML AMP IM STA (14:05)
[2018-10-07] MEDS ORDERED: KETOROLAC 30 MG/ML VIAL IVP STA (14:06)
--- NOTE | 2018-10-07 14:10 | ED Physician Documentation ---
PD HPI HEADACHE - Stated complaint Stated Complaint: JORGE/VOMITING - Chief complaint Chief Complaint: Neuro - History obtained from History obtained from: Patient - History of Present Illness Timing - onset: How many days ago (4) Timing - onset during: Rest Timing - duration: Days (4) Timing - details: Gradual onset Pain level max: 10 Pain level now: 10 Worst headache ever?: No: Worst headache ever? Location: Global Quality: Throbbing, Aching, Stabbing. No: Thunderclap Associated symptoms: Nausea, Vomiting. No: Fever, Stiff neck, Weakness, Numbness, Syncope Improved by: Rest, Dark room Worsened by: Light, Noise, Moving Contributing factors: No: Anticoagulated, Possible carbon monoxide, Hypertens ion, Recent illness, Trauma Similar symptoms before: Diagnosis (chronic migraines) Recently seen: Emergency Dept (last night for same, no change with dilaudid.) Review of Systems Ten Systems: 10 systems reviewed and negative Constitutional: denies: Fever, Chills Skin: denies: Rash Musculoskeletal: reports: Back pain (chronic and unchanged.). 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, Kidney stones HEENT: Macular degeneration Psych: Depression, Anxiety, Panic attacks, Post traumatic stress disorder, Claustrophobia Musculoskeletal: Fibromyalgia, Chronic back pain Derm: None - Past Surgical History Past Surgical History: Yes General: EGD 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: 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: 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, Hysterectomy HEENT: Tonsil/Adenoidectomy - Present Medications Home Medications: Ambulatory Orders Medication Instructions Recorded Confirmed Levothyroxine [Synthroid] 100 mcg PO QDAC 03/09/13 07/01/16 Sertraline [Zoloft] 200 mg PO DAILY 03/09/13 07/01/16 Ondansetron Odt [Zofran] 4 mg TL Q6H PRN #10 tablet 07/01/16 07/01/16 Zolpidem [Ambien] 10 mg PO DAILY PM 07/01/16 07/01/16 Cyclobenzaprine [Flexeril] 10 mg PO TID PRN 04/15/18 04/15/18 Ondansetron HCl [Zofran] 4 mg PO Q6H PRN #20 tablet 04/15/18 Oxycodone HCl/Acetaminophen 1 each PO Q6H PRN #20 tablet 04/15/18 [Percocet 5-325 mg Tablet] Oxycodone HCl/Acetaminophen 1 - 2 each PO Q6H PRN #14 tablet 06/10/18 [Percocet 5-325 mg Tablet] Albuterol Sulf [Ventolin Hfa 1 - 2 puffs INH Q4HR PRN #1 inhaler 07/15/18 Inhaler] Neomycin/Polymyx/Hc Otic Drops 4 drops OT TID #1 bottle 07/15/18 [Cortisporin Ear Susp] Oxycodone HCl/Acetaminophen 1 - 2 each PO Q6H PRN #10 tablet 07/15/18 [Percocet 5-325 mg Tablet] Furosemide [Lasix] 20 mg PO DAILY #4 tablet 08/19/18 Butalb/Acetaminophen/Caffeine 1 cap PO Q8H PRN #10 capsule 10/07/18 [Fioricet 50-300-40 mg Capsule] Ondansetron Odt [Zofran] 4 mg TL Q6H PRN #10 tablet 10/07/18 - Allergies Allergies/Adverse Reactions: Allergies Allergy/AdvReac Type Severity Reaction Status Date / Time pregabalin [From Lyrica] Allergy Intermediate Respiratory Verified 10/07/18 13:24 amitriptyline Allergy Unknown Verified 10/07/18 13:24 droperidol [From Inapsine] Allergy Anxiety Verified 10/07/18 13:24 gabapentin Allergy Unknown Verified 10/07/18 13:24 metoclopramide HCl * Allergy Anxiety Verified 10/07/18 13:24 [From Reglan] prochlorperazine edisylate * Allergy Anxiety Verified 10/07/18 13:24 [From Compazine] prochlorperazine maleate * Allergy Anxiety Verified 10/07/18 13:24 [From Compazine] sulfamethoxazole Allergy Hives Verified 10/07/18 13:24 [From Bactrim] sumatriptan [From Imitrex] Allergy Unknown Verified 10/07/18 13:24 sumatriptan succinate * Allergy Unknown Verified 10/07/18 13:24 [From Imitrex] topiramate [From Topamax] Allergy Hives Verified 10/07/18 13:24 tramadol HCl * [From Ultram] Allergy Hives Verified 10/07/18 13:24 trimethoprim [From Bactrim] Allergy Hives Verified 10/07/18 13:24 rizatriptan benzoate * AdvReac Intermediate vomiting Verified 10/07/18 13:24 [From Maxalt] aspirin AdvReac Unknown Verified 10/07/18 13:24 NSAIDS (Non-Steroidal AdvReac Unknown Verified 10/07/18 13:24 Anti-Inflamma nerve pain med Allergy Hives Uncoded 10/07/18 13:24 - Social History Does the pt smoke?: Yes Smoking Status: Current every day smoker Does the pt drink ETOH?: No Does the pt have substance abuse?: Yes - Immunizations Immunizations are current?: Yes - POLST Patient has POLST: No PD ED PE NORMAL - Vitals Vital signs reviewed: Yes - General General: Alert and oriented X 3, No acute distress, Well developed/nourished - HEENT HEENT: PERRL, Moist mucous membranes - Neck Neck: Supple, no meningeal sign - Cardiac Cardiac: RRR - Respiratory Respiratory: No respiratory distress, Clear bilaterally - Abdomen Abdomen: Soft, Non tender, Non distended - Derm Derm: Warm and dry - Extremities Extremities: No deformity - Neuro Neuro: Alert and oriented X 3, switch cleaner 2-12 intact, No motor deficit, No sensory deficit, Normal speech Eye Opening: Spontaneous Motor: Obeys Commands Verbal: Oriented GCS Score: 15 - Psych Psych: Normal mood, Normal affect Results - Vitals Vitals: Vital Signs - 24 hr 10/07/18 10/07/18 10/07/18 13:22 13:33 15:19 Temperature 36.6 C Heart Rate 113 H 93 Respiratory 18 18 18 Rate Blood Pressure 134/79 H 149/97 H O2 Saturation 97 99 10/07/18 10/07/18 16:45 17:34 Temperature 36.5 C 36.8 C Heart Rate 97 87 Respiratory 16 16 Rate Blood Pressure 142/90 H 140/88 H O2 Saturation 98 98 Oxygen O2 Source Room air - Labs Labs: Laboratory Tests 10/07/18 10/07/18 14:10 14:10 WBC 8.9 RBC 4.22 Hgb 10.6 L Hct 32.9 L MCV 77.9 L MCH 25.1 L MCHC 32.2 RDW 16.3 H Plt Count 389 MPV 7.6 L Neut # (Auto) 8.0 H Lymph # (Auto) 0.7 L [place] # (Auto) 0.2 Eos # (Auto) 0.0 Baso # (Auto) 0.0 Absolute Nucleated RBC 0.00 Nucleated RBC % 0.0 Sodium 136 Potassium 3.4 L Chloride 100 L Carbon Dioxide 23 Anion Gap 13.0 BUN 18 Creatinine 0.8 Estimated GFR (MDRD) 75 L Glucose 135 H Calcium 9.1 Total Bilirubin 0.2 AST 21 ALT 14 Alkaline Phosphatase 85 Total Protein 7.9 Albumin 3.9 Globulin 4.0 Albumin/Globulin Ratio 1.0 Lipase 23 - Rads (name of study) head CT Radiology: Prelim report reviewed, EMP read contemporaneously, See rad report (normal head CT) PD MEDICAL DECISION MAKING - ED course Complexity details: reviewed results, re-evaluated patient, considered differential, d/w patient, d/w family ED course: 52-year-old female with her usual migraine headache. Feels better after Toradol, Dilaudid, Zofran, DHE and Fioricet. Negative head CT. Patient comfortable going home at this time. Patient would like a prescription for Fioricet. Patient counseled regarding signs and symptoms for which I believe and urgent re-evaluation would be necessary. Patient with good understanding of and agreement to plan and is comfortable going home at this time This document was made in part using voice recognition software. While efforts are made to proofread this document, sound alike and grammatical errors may occur. Departure - Departure Disposition: 01 Home, Self Care Clinical Impression: Migraine headache Qualifiers: Migraine type: unspecified Status migrainosus presence: without status migrainosus Intractability: not intractable Qualified Code(s): G43.909 - Migraine, unspecified, not intractable, without status migrainosus Condition: Good Instructions: ED Headache Migraine Follow-Up: Erika Parker PA-C [Primary Care Provider] - Within 1 week Prescriptions: Butalb/Acetaminophen/Caffeine [Fioricet 50-300-40 mg Capsule] 1 cap PO Q8H PRN #10 capsule PRN Reason: headache Comments: Follow-up with your doctor for further care of your headaches. Return if you worsen. Discharge Date/Time: 10/07/18 17:35
[2018-10-07] MEDS ORDERED: DIHYDROERGOTAMINE 1 MG/ML AMP IVP STA (14:14)
[2018-10-07 14:31] LABS: BASOPHILS % (AUTO) 0.5 %; HGB - HEMOGLOBIN 10.6 g/dL (12.0-16.0); LYMPHOCYTES # (AUTO) 0.7 10^3/uL (1.5-3.5); LYMPHOCYTES % (AUTO) 8.4 %; MEAN CORPUSCULAR HEMOGLOBIN 25.1 pg (27.0-31.0); MEAN CORPUSCULAR HGB CONC 32.2 g/dL (32.0-36.0); MEAN CORPUSCULAR VOLUME 77.9 fL (81.0-99.0); MEAN PLATELET VOLUME 7.6 fL (7.9-10.8); MONOCYTES # (AUTO) 0.2 10^3/uL (0.0-1.0); MONOCYTES % (AUTO) 1.8 %; NEUTROPHILS % (AUTO) 89.3 %; PLT - PLATELET COUNT 389 10^3/uL (130-450); RED BLOOD COUNT 4.22 10^6/uL (4.20-5.40); RED CELL DISTRIBUTION WIDTH 16.3 % (12.0-15.0); WHITE BLOOD COUNT 8.9 x10^3/uL (4.8-10.8)
[2018-10-07 14:44] LABS: ALBUMIN 3.9 g/dL (3.2-5.5); BILIRUBIN,TOTAL 0.2 mg/dL (0.2-1.0); CALCIUM 9.1 mg/dL (8.5-10.3); CREATININE 0.8 mg/dL (0.4-1.0); TOTAL PROTEIN 7.9 g/dL (6.7-8.2)
[2018-10-07] MEDS ORDERED: BUTALB/ACETAM/CAFF 50/325/40MG TABLET PO STA (15:17)
--- NOTE | 2018-10-07 16:18 | CT Report ---
Reason: headache x 3 days Procedure Date: 10/07/2018 Accession Number: [id number] / [id number] Procedure: CT - HEAD WO CPT Code: FULL RESULT: EXAM: CT HEAD EXAM DATE: 10/07/2018 03:43 PM. CLINICAL HISTORY: Headache x 3 days. COMPARISON: HEAD W/O 03/08/2015 11:35 AM. TECHNIQUE: Multiaxial CT images were obtained from the foramen magnum to the vertex. Reformats: Sagittal and coronal. IV contrast: None. In accordance with CT protocol optimization, one or more of the following dose reduction techniques were utilized for this exam: automated exposure control, adjustment of mA and/or KV based on patient size, or use of iterative reconstructive technique. FINDINGS: Parenchyma: No intraparenchymal hemorrhage. No evidence of mass, midline shift, or CT findings of infarction. Hobbs-white differentiation is distinct. Extraaxial Spaces: Normal for age. No subdural or epidural collections identified. Ventricles: Normal in size and position. Sinuses and Orbits: Imaged paranasal sinuses, orbits, and mastoids show no significant abnormality. Bones: No evidence of fracture or calvarial defect. Other: None. IMPRESSION: Normal head CT. RADIA
[2018-10-07] MEDS ORDERED: HYDROmorphone 1 MG/ML CARPUJECT IVP STA (17:06)
[2018-10-07 17:36] VITALS: BP 140/88
== END 2018-10-07 17:35 | disposition home or self-care (01) ==
LOC: ED 13:16
DX: G43.909 Migraine, unspecified, not intractable, without status migrainosus (principal); E03.9 Hypothyroidism, unspecified; G89.29 Other chronic pain; F17.200 Nicotine dependence, unspecified, uncomplicated; Z79.82 Long term (current) use of aspirin
CPT/HCPCS: 36415; 70450; 80053; 83690; 85025; 96361; 96374; 96375; 96376; 99284; A9270; J1110; J1170

== ENCOUNTER 2022-09-20 14:49 | Outpatient (CLI) | payer MEDICAID ==
--- NOTE | 2022-09-20 16:14 | CT Report ---
PROCEDURE: Low Dose Lung Cancer Screen INDICATIONS: SMOKER TECHNIQUE: Noncontrast low-dose axial images were acquired from the pulmonary apices to the posterior costophren ic angles. Multiplanar MIP reformats were then reconstructed. For radiation dose reduction, the follo wing was used: automated exposure control, adjustment of mA and/or kV according to patient size. COMPARISON: None. FINDINGS: Image quality: Excellent. Lungs and pleura: Mediastinum: Heart size is normal. No pericardial effusion. No mediastinal adenopathy by size crit eria. Thoracic aorta and central pulmonary arteries are normal in size. Esophagus is normal in [place]. No hiatal hernia. Bones and chest wall: No suspicious bony lesions. No vertebral body compression fractures. No axil bill or supraclavicular adenopathy by size criteria. The thyroid is normal in size and there are no incidental findings. Abdomen: Visualized upper abdomen solid organs and bowel loops appear normal in the absence of contr ast. PROCEDURE: Low Dose Lung Cancer Screen INDICATIONS: SMOKER TECHNIQUE: Noncontrast low-dose axial images were acquired from the pulmonary apices to the posterior costophren ic angles. Multiplanar MIP reformats were then reconstructed. For radiation dose reduction, the follo wing was used: automated exposure control, adjustment of mA and/or kV according to patient size. COMPARISON: None. FINDINGS: Image quality: Excellent. Lungs and pleura: There is mild centrilobular emphysema with an apical predominance. There is mild ap ical pulmonary scarring. Postoperative changes are present along the lateral aspect of the right apex . There is a 3 mm intrafissural nodule within the right oblique fissure. A 3 mm pulmonary nodule is p resent at the lingular base (series 4/image 203). A cluster of 2 and 3 mm pulmonary nodules are prese nt within the posterior medial aspect of the right lower lobe (series 4/image 149). Prior Cancer: Not Sure Mediastinum: Heart size is normal. No pericardial effusion. No mediastinal adenopathy by size crit eria. Thoracic aorta and central pulmonary arteries are normal in size. Esophagus is normal in [place] fr[place]. No hiatal hernia. Bones and chest wall: No suspicious bony lesions. No vertebral body compression fractures. No axil bill or supraclavicular adenopathy by size criteria. The thyroid is normal in size. Abdomen: Visualized upper abdomen solid organs and bowel loops appear normal in the absence of contr ast. IMPRESSION: Lung RAD: 2 - Benign Appearance or Behavior. Nodules with a very low likelihood of becoming a clinica lly active cancer due to size or lack of growth. Recommendation: 2 - Continue annual screening with LDCT in 12 months. Non-Lung Significant Findings: None CLINICAL RECOMMENDATION STATEMENTS: In patients <35 years with an ITN detected on CT, MRI, or extrathyroidal ultrasound, the Committee re commends further evaluation with dedicated thyroid ultrasound if the nodule is "e1 cm and has no susp icious imaging features, and if the patient has normal life expectancy. In patients "e35 years with an ITN detected on CT, MRI, or extrathyroidal ultrasound, the Committee r ecommends further evaluation with dedicated thyroid ultrasound if the nodule is "e1.5 cm and has no s uspicious imaging features, and if the patient has normal life expectancy. (ACR, 2014) Reviewed by: Billie Purcell MD on 09/20/2022 4:12 PM PDT Approved by: Billie Purcell MD on 09/20/2022 4:12 PM PDT Station ID: [id number] Lung-Rad Lung-Recommendation [id number]
--- NOTE | 2022-09-20 16:44 | XRAY Report ---
PROCEDURE: TMJ - Right Unilateral INDICATIONS: JAW PAIN TECHNIQUE: 5 view(s) of the temporomandibular joints. acquired. COMPARISON: None FINDINGS: Bones: No fractures or dislocations. No suspicious bony lesions. Suboptimal dilation of the tempor al mandibular joints. Soft tissues: No suspicious soft tissue calcifications. IMPRESSION: Suboptimal evaluation of the temporomandibular joints. MRI could be performed for further assessment, if clinically indicated. Reviewed by: Jaqui Telles MD on 09/20/2022 4:42 PM PDT Approved by: Jaqui Telles MD on 09/20/2022 4:42 PM PDT Station ID: [id number]
== END 2022-09-20 14:50 | disposition home or self-care (01) ==
LOC: DI 14:49
PROVIDERS: ATTEND Physician Assistant
DX: Z12.2 Encounter for screening for malignant neoplasm of respiratory organs (principal); R68.84 Jaw pain; F17.200 Nicotine dependence, unspecified, uncomplicated

== ENCOUNTER 2022-09-20 14:53 | Outpatient (CLI) | payer MEDICAID ==
--- NOTE | 2022-09-21 09:28 | Mammography Report ---
BILATERAL DIGITAL SCREENING MAMMOGRAM 3D/2D: 09/20/2022 CLINICAL: Routine screening. Comparison is made to exams dated: 06/21/2016 mammogram and 05/23/2013 mammogram - [facility]. There are scattered areas of fibroglandular density in both breasts (category b / 25%-50% glandular t issue). No significant masses, calcifications, or other findings are seen in either breast. There has been no significant interval change. IMPRESSION: NEGATIVE There is no mammographic evidence of malignancy. A 1 year screening mammogram is recommended. Based on the Tyrer Cuzick model (a risk assessment model) the patients lifetime risk is 12.5% and he r 10 year risk is 4.6%. According to the ACR, ACS, and NCCN guidelines, an annual breast MRI exam shakira ng with mammogram is recommended if the patients lifetime risk is 20% or greater. This exam was interpreted at Station ID: [id number]. NOTE: For mammograms, a report in lay terms will be sent to the patient. Approximately 15% of breast malignancies will not be visualized mammographically. In the management of a palpable breast mass, a negative mammogram must not discourage biopsy of a clinically suspicious lesion. Electronically Signed By: Glen wolf/james:09/21/2022 07:28:14 letter sent: No_Letter ACR BI-RADS Category 1: Negative 3341F PARENCHYMAL PATTERN: (A) - The breast(s) demonstrate(s) scattered fibroglandular densities. BI-RADS CATEGORY: (1) - 1 Mammogram [id number] 1 year screening LATERALITY: (B)
== END 2022-09-20 14:54 | disposition home or self-care (01) ==
LOC: DI 14:53
PROVIDERS: ATTEND Physician Assistant
DX: Z12.31 Encounter for screening mammogram for malignant neoplasm of breast (principal)

== ENCOUNTER 2023-01-27 12:37 | Outpatient (CLI) | payer MEDICAID | END 2023-01-27 12:38 | disposition home or self-care (01) | LOC: LAB 12:37 | PROVIDERS: ATTEND Nurse Practitioner Family | DX: F11.20 Opioid dependence, uncomplicated (principal) | CPT/HCPCS: 80307; 81599 ==